=== PATIENT | male | born 1980 | race American Indian/Alaskan Native ===

== ENCOUNTER 2018-09-11 21:54 | Emergency (ER) | payer BC ==
[~2018-09-11] VITALS: Ht 175.3 cm; Wt 113.4 kg
[2018-09-11] MEDS ORDERED: CLONIDINE HCL 0.2 MG TAB PO ONE (23:30)
[2018-09-12] MEDS ORDERED: ROBAXIN-750750 MG PO (00:30)
[2018-09-12] MEDS ORDERED: ULTRAM50 MG PO (00:32)
[2018-09-12 01:11] VITALS: BP 161/104
== END 2018-09-12 01:29 | disposition home or self-care (01) ==
LOC: ER 21:54
DX: M54.5 Low back pain (principal); S33.5XXA Sprain of ligaments of lumbar spine, initial encounter; F17.210 Nicotine dependence, cigarettes, uncomplicated; X50.0XXA Overexertion from strenuous movement or load, initial encounter; Y99.0 Civilian activity done for income or pay
CPT/HCPCS: 99283

== ENCOUNTER 2020-02-09 12:43 | Emergency (ER) | payer BC ==
[~2020-02-09] VITALS: Ht 175.3 cm; Wt 117.9 kg
[~2020-02-09 12:43] MED LIST: ROBAXIN-750750 MG PO; ULTRAM50 MG PO
--- NOTE | 2020-02-09 13:15 | Emergency Department Note ---
History of Present Illnes History of Present Illness Chief Complaint: General Medicine Complaints History of Present Illness This is a 39 year old male with 1 DAYS CONTINUOUS LOW BACK PAIN DESCRIBED ACHE, WEAK, COLD SWEATS, DECREASED APPETITE Historian: Patient Arrival Mode: Car Additional Treatment UNDERTAKER HELPER: NONE Lodging Facilities Attendant Required: No Onset (how long ago): day(s) (1) Severity: moderate Onset quality: gradual Duration (how long): day(s) (1) Timing of current episode: constant Progression: worsening Chronicity: new Relieving factors: none Exacerbating factors: none Treatments prior to arrival: none Past Medical/Family History Physician Review I have reviewed the patient's past medical and family history. Any updates have been documented here. Past Medical History Recent Fever: No Clinical Suspicion of Infectio: No New/Unexplained Change in Ment: No Past Medical History: None, Hypertension Past Surgical History: Hernia Repair Social History Smoking Cessation: Never Smoker Alcohol Use: None Physically hurt or threatened: No Family History Family history of heart diseas: No Other Last Tetanus: OUT OF DATE Review of Systems Review of Systems Constitutional: Reports no symptoms, Reports as per HPI, Reports chills, Reports fever, Reports malaise, Reports weakness EENTM: Reports no symptoms Cardiovascular: Reports no symptoms Respiratory: Reports no symptoms Gastrointestinal: Reports no symptoms Genitourinary: Reports no symptoms Musculoskeletal: Reports no symptoms, Reports back pain, Reports muscle pain Integumentary: Reports no symptoms Neurological: Reports no symptoms Psychological: Reports no symptoms Endocrine: Reports no symptoms Hematological/Lymphatic: Reports no symptoms Physical Exam Related Data Allergies: Coded Allergies: No Known Allergies (Unverified , 02/09/20) Triage Vital Signs Vital Signs Date Time Temp Pulse Resp B/P (MAP) Pulse Ox O2 Delivery O2 Flow Rate FiO2 02/09/20 13:09 99.2 101 18 127/91 100 Room Air Vital signs reviewed: Yes Physical Exam CONSTITUTIONAL Constitutional: Present well-developed, Present well-nourished HENT HENT: Present normocephalic, Present atraumatic, Present oropharynx clear/moist, Present nose normal HENT L/R: Present left ext ear normal, Present right ext ear normal EYES Eyes: Reports PERRL, Reports conjunctivae normal NECK Neck: Present ROM normal PULMONARY Pulmonary: Present effort normal, Present breath sounds normal CARDIOVASCULAR Cardiovascular: Present regular rhythm, Present heart sounds normal, Present capillary refill normal, Present normal rate GASTROINTESTINAL Abdominal: Present soft, Present nontender, Present bowel sounds normal GENITOURINARY Genitourinary: Present exam deferred SKIN Skin: Present warm, Present dry MUSCULOSKELETAL Musculoskeletal: Present ROM normal NEUROLOGICAL Neurological: Present alert, Present oriented x 3, Present no gross motor or sensory deficits PSYCHOLOGICAL Psychological: Present mood/affect normal, Present judgement normal Results Laboratory Lab results reviewed: Yes Imaging Imaging results reviewed: Yes Diagnostics Tests Diagnostic test(s) reviewed: Yes Assessment & Plan Medical Decision Making MDM 39-year-old male with fever, malaise, chills, muscle pain for one day. No sick contacts. He is not. Examination shows an overall well-appearing male in no acute distress, vital signs stable and within acceptable limits. Workup included chest x-ray is unremarkable. Initial differential includes viral illness versus pneumonia versus generalized fatigue. Diagnosis favors viral illness. I discussed results patient as well as expected disease time course and management. He will follow up with his primary care provider or return to the e mergency department for new or worsening symptoms. Patient's appropriate for discharge. He will take OTC cold medicines and tylenol/ibuprofen as needed. He was given 500cc NS, Tylenol, and Toradol in the ED. Part of this note was dictated with Antonio and is subject to some recognition errors. Reassessment Reassessment time: 15:30 Reassessment Feels better after treatment Assessment & Plan Final Impression: (1) Viral illness Depart Disposition: HOME, SELF-CARE Last Vital Signs Date Time Temp Pulse Resp B/P (MAP) Pulse Ox O2 Delivery O2 Flow Rate FiO2 02/09/20 13:09 99.2 101 18 127/91 100 Room Air Home Meds Active Scripts Tramadol Hcl (ULTRAM) 50 Mg Tablet, 50 MG PO Q6H PRN for MUSCLE SPASMS, #10 TAB Prov:FABIOHIR AMBICA, DO 09/12/18 Methocarbamol (ROBAXIN-750) 750 Mg Tablet, 750 MG PO Q8H PRN for MUSCLE SPASMS, #14 Prov:SANDHIR, AMBICA, DO 09/12/18 Wing Zimmerman MD Feb 09, 2020 13:15
[2020-02-09 14:00] LABS: BASOPHILS # (AUTO) 0.1 (0.0-0.1); BASOPHILS % 0.3 % (0.0-1.0); EOSINOPHILS # (AUTO) 0.2 (0.0-0.4); EOSINOPHILS % 1.2 % (0.0-6.0); HEMATOCRIT 43.1 % (38.2-49.6); HEMOGLOBIN 14.8 g/dL (14.0-18.0); LYMPHOCYTES # (AUTO) 1.5 (1.0-3.2); LYMPHOCYTES % 7.8 % (18.0-39.1); MEAN CORPUSCULAR HEMOGLOBIN 30.7 pg (28-32); MEAN CORPUSCULAR HGB CONC 34.3 g/dL (31-35); MEAN CORPUSCULAR VOLUME 89.4 fL (81-99); MONOCYTES # (AUTO) 1.3 (0.2-0.8); NEUTROPHILS # (AUTO) 15.8 (2.1-6.9); NEUTROPHILS % 83.2 % (38.7-80.0); PLATELET COUNT 310 x10e3/uL (140-360); RED BLOOD COUNT 4.82 x10e6/uL (4.3-5.7); RED CELL DISTRIBUTION WIDTH 13.2 % (11.7-14.4)
[2020-02-09 14:12] LABS: CLARITY,URINE CLEAR (CLEAR); COLOR,URINE YELLOW (YELLOW)
--- OUTSIDE RECORDS SUMMARY | 2020-02-09 14:12 | XMS REPORT | Continuity of Care Document ---
Author Author [facility] Organization [facility] Address [address] [place] [address] Phone Unavailable Care Team Providers Care Sandblaster Glass Name Role Phone NONSTAFF PCP Unavailable Problems This patient has no known problems. Allergies, Adverse Reactions, Alerts This patient has no known allergies or adverse reactions. Medications Ordered Medication Name Filled Medication Name Start Date Stop Da te Current Medication? Ordering Clinician Indication Dosage Frequency Signature (SIG) Comments Components Source Methocarbamol (Robaxin-750) 750 Mg Tablet Methocarbamo l (Robaxin-750) 750 Mg Tablet 2018-09-12 00:00:00 Yes Lisseth Glover Md 750 Every 8 Hours as needed for Muscle Spasms [facility] Tramadol Hcl (Ultram) 50 Mg Tablet Tramadol Hcl (Ultram) 50 Mg Tablet 2018-09-12 00:00:00 Yes Lisseth Glover Md 50 E very 6 Hours as needed for Muscle Spasms [facility] Procedures This patient has no known procedures. Encounters Start Date/Time End Date/Time Encounter Type Admission Type [facility] Care Department Encounter ID Source 2018-09-11 21:54:00 2018-09-12 01:29:00 Departed Emergency Room [facility] [id number] [facility] Results This patient has no known results.
[2020-02-09 14:13] LABS: BILIRUBIN,URINE SMALL (NEGATIVE); KETONES,URINE TRACE (NEGATIVE); LEUKOCYTE ESTERASE ,URINE NEGATIVE (NEGATIVE); NITRITE,URINE NEGATIVE (NEGATIVE); PROTEIN,URINE DIPSTICK 1+ (NEGATIVE); URINE UROBILINOGEN 1 mg/dL (0.2 - 1)
[2020-02-09 14:15] LABS: ALANINE AMINOTRANSFERASE 19 IU/L (0-55); ALBUMIN 3.8 g/dL (3.5-5.0); ALKALINE PHOSPHATASE 67 IU/L (40-150); BLOOD UREA NITROGEN 9 mg/dL (7-26); BUN/CREATININE RATIO 9 (6-25); CALCIUM 9.2 mg/dL (8.4-10.2); CARBON DIOXIDE 26 mmol/L (22-29); CHLORIDE 105 mmol/L (98-107); CREATININE, SERUM 0.99 mg/dL (0.72-1.25); EST GLOMERULAR FILTRATION RATE > 60 ML/MIN (60-); GLUCOSE 100 mg/dL (74-118); SODIUM 140 mmol/L (136-145)
[2020-02-09 14:21] LABS: BACTERIA,URINE RARE /HPF; EPITHELIAL CELLS,URINE FEW /LPF; MUCUS,URINE FEW (RARE); RBC,URINE 0-5 /HPF (0-5)
--- NOTE | 2020-02-09 14:46 | Diagnostic Imaging Report ---
EXAMINATION: CHEST SINGLE (PORTABLE) INDICATION: Weakness COMPARISON: None FINDINGS: LINES/TUBES:EKG leads overlie the chest. LUNGS:The lungs are well-inflated. No focal consolidation or pulmonary edema. PLEURA:No pleural effusion or pneumothorax. MEDIASTINUM:The cardiomediastinal silhouette appears mildly enlarged, likely magnified by portable technique. BONES/SOFT TISSUES:No acute osseous injury. ABDOMEN:No free air under the diaphragm. IMPRESSION: No focal pneumonia or pulmonary edema. Signed by: Beth Rosales MD on 02/09/2020 2:43 PM
[2020-02-09] MEDS ORDERED: KETOROLAC TROMETHAMINE 30 MG/ML VIAL IV ONE (15:00)
[2020-02-09] MEDS ORDERED: ACETAMINOPHEN 325 MG TAB PO ONE (15:00)
[2020-02-09] MEDS ORDERED: SODIUM CHLORIDE 0.9% 500ML 500 ML IV ONE ×2 (15:00→16:00)
--- NOTE | 2020-02-09 15:03 | NUR ---
PATIENT SITTING UP SNACKING ON VERONIQUE, GRAHM CRACKERS, PUDDING
== END 2020-02-09 16:15 | disposition home or self-care (01) ==
LOC: ER 13:15
DX: R50.9 Fever, unspecified (principal); B34.9 Viral infection, unspecified; M54.5 Low back pain; R53.1 Weakness; I10 Essential (primary) hypertension
CPT/HCPCS: 36415; 71045; 80053; 81001; 84484; 85025; 93005; 99284; J1885; J7040

== ENCOUNTER 2020-06-17 13:53 | Emergency (ER) | payer BC ==
[~2020-06-17] VITALS: Ht 175.3 cm; Wt 117.9 kg
[2020-06-17] MEDS ORDERED: KETOROLAC TROMETHAMINE 30 MG/ML VIAL IV ONE (14:12)
[2020-06-17] MEDS ORDERED: DIAZEPAM 5 MG TAB PO PRN (14:15)
[2020-06-17] MEDS ORDERED: METHYLPREDNISOLONE SOD SUCC 125 MG/2ML VIAL IM ONE (14:15)
[2020-06-17 14:40] LABS: CLARITY,URINE SL CLOUDY (CLEAR); COLOR,URINE YELLOW (YELLOW)
[2020-06-17 14:41] LABS: KETONES,URINE NEGATIVE (NEGATIVE); LEUKOCYTE ESTERASE ,URINE NEGATIVE (NEGATIVE); NITRITE,URINE NEGATIVE (NEGATIVE); PROTEIN,URINE DIPSTICK NEGATIVE (NEGATIVE); URINE UROBILINOGEN 2 mg/dL (0.2 - 1)
[2020-06-17] MEDS ORDERED: KETOROLAC TROMETHAMINE 60 MG/2 ML VIAL IM ONE (14:45)
[2020-06-17 14:56] LABS: BACTERIA,URINE RARE /HPF; EPITHELIAL CELLS,URINE RARE /LPF; RBC,URINE 0-5 /HPF (0-5); WBC,URINE (MAN) 0-5 /HPF (0-5)
[2020-06-17 14:57] LABS: MUCUS,URINE FEW (RARE)
[2020-06-17] MEDS ORDERED: ULTRAM50 MG PO (17:13)
[2020-06-17] MEDS ORDERED: PREDNISONE20 MG PO (17:13)
[2020-06-17] MEDS ORDERED: VALIUM2 MG PO (17:13)
[2020-06-17 17:49] VITALS: BP 145/98
== END 2020-06-17 17:50 | disposition home or self-care (01) ==
LOC: ER 13:57
DX: M54.5 Low back pain (principal); M79.605 Pain in left leg; M79.604 Pain in right leg; I10 Essential (primary) hypertension; G89.29 Other chronic pain
CPT/HCPCS: 72131; 81001; 99283; J1885; J2930

== ENCOUNTER → 2021-01-31 | Emergency (ER) | payer BC ==
[~2021-01-31] VITALS: Ht 175.3 cm; Wt 117.9 kg
[~2021-01-31] MED LIST changes: +PREDNISONE20 MG PO; +VALIUM2 MG PO
== END | disposition home or self-care (01) ==
LOC: ER 10:49
DX: B65.3 Cercarial dermatitis (principal)
CPT/HCPCS: 99283